=== PATIENT | female | born 1945 | race Caucasian/White ===

== ENCOUNTER 2017-04-05 08:29 | Inpatient (IN) | payer MEDICARE ==
[~2017-04-05] VITALS: Ht 170.2 cm; Wt 106.3 kg
--- NOTE | 2017-04-05 08:44 | NUR ---
PT TO ROOM 10 VIA WC.
[2017-04-05 09:24] LABS: HEMATOCRIT 35.2 % (37.0-47.0); HEMOGLOBIN 11.8 g/dl (12.0-16.0); IMMATURE GRANULOCYTES 1.6 % (0.0-1.0); MEAN CELL VOLUME 90.3 fL CALC (80.0-100.0); MEAN CORPUSCULAR HGB 30.3 pG CALC (26.0-32.0); MEAN CORPUSCULAR HGB CONC 33.5 g/L CALC (32.0-36.0); NEUT# 10.04 thou/uL (2.00-7.15); RED BLOOD COUNT 3.9 mill/uL (4.20-5.60); RED CELL DISTRI WIDTH 13.4 % (11.5-15.5)
--- NOTE | 2017-04-05 09:30 | NUR ---
RT AT BEDSIDE TO DRAW ABG.
[2017-04-05 09:42] LABS: ALKALINE PHOSPHATASE 187 u/l (38-126); ANION GAP 17 (6-22 (CALC)); BILIRUBIN, TOTAL 0.9 mg/dL (0.0-1.4); BUN 28 mg/dL (8-23); BUN/CREATININE RATIO 29 (12-20 (CALC)); CARBON DIOXIDE 29 mmol/l (22-30); CHLORIDE 95 mmol/l (95-108); CREATININE 0.9 mg/dL (0.5-1.0); GFR > 60 ML/MIN (>=60 (CALC)); GFR FOR AFR.AMER. > 60 ML/MIN (>=60 (CALC)); LIPASE 394 u/l (23-300); POTASSIUM 3.3 mmol/l (3.5-5.1); SGOT/AST 150 u/l (9-36); SGPT/ALT 64 u/l (11-66); SODIUM 137 mmol/l (137-146); TOTAL PROTEIN 7.7 g/dL (6.3-8.2)
--- NOTE | 2017-04-05 09:50 | NUR ---
MD AT BEDSIDE TO DISCUSS RESULTS.
[2017-04-05 09:54] LABS: MYOGLOBIN 96 ng/mL (0 - 62)
--- NOTE | 2017-04-05 10:25 | NUR ---
PATIENT RESTING ON STRETCHER WITH RESPIRATIONS EVEN AND UNLABORED, WITH O2 AT 2L VIA NASAL CANNULA. VISITOR AT BEDSIDE, WILL CONTINUE TO MONITOR.
--- NOTE | 2017-04-05 11:08 | NUR ---
ATTEMPT TO CALL REPORT, SPOKE TO FLACA. WILL TRY AGAIN.
--- NOTE | 2017-04-05 11:27 | NUR ---
REPORT GIVEN TO DORINA RUCKER
--- NOTE | 2017-04-05 11:40 | NUR ---
PATIENT TRANSPORTED TO ICU WITH BEATER LEAD IN PLACE VIA STRETCHER. BEDSIDE REPORT GIVEN TO DORINA RUCKER. CARE RELINQUISHED.
[2017-04-05 12:00] VITALS: BP 159/86
[2017-04-05 12:42] LABS: URINE BILIRUBIN - DIPSTICK NEGATIVE (NEGATIVE); URINE BLOOD DIPSTICK LARGE (NEGATIVE); URINE CLARITY HAZY; URINE COLOR DK. YELLOW; URINE GLUCOSE - DIPSTICK NEGATIVE (NEGATIVE); URINE KETONE TRACE mg/dL (NEGATIVE); URINE LEUK ESTERASE MODERATE (NEGATIVE); URINE NITRITE - DIPSTICK NEGATIVE (Negative); URINE PROTEIN - DIPSTICK 30 mg/dL (NEG-TRACE); URINE SPECIFIC GRAVITY 1.015
[2017-04-05 12:43] LABS: URINE RBC 25-50 RBC/hpf (0-5)
[2017-04-05 12:44] LABS: URINE BACTERIA MODERATE hpf; URINE EPITHELIAL CELLS MODERATE EPI/hpf (0-FEW)
--- NOTE | 2017-04-05 13:15 | NUR ---
DR. GARCIA IN TO SEE PT; PLAN OF CARE DISCUSSED;
--- NOTE | 2017-04-05 13:45 | NUR ---
PT TO CT VIA WC ACCOMPANIED BY STAFF
--- NOTE | 2017-04-05 14:10 | NUR ---
PT RETURN FROM CT VIA WC ACCOMPANIED BY VOLUNTEER; AMBULTORY TO BED WITH STAND BY ASSIST; PT DENIES PAIN OR DISCOMFORT; IVF STARTED AT THIS TIME; FAMILY IN TO VISIT PT; CALL JOSUE WITHIN REACH; WILL CONTINUE TO MONITOR.
--- NOTE | 2017-04-05 15:52 | NUR ---
PT WATCHING TV; NO COMPLAINTS VOICED; CALL JOSUE WITHIN REACH; WILL CONTINUE TO MONITOR.
[2017-04-05 16:00] VITALS: BP 156/93
[2017-04-05 20:08] VITALS: BP 138/78
--- NOTE | 2017-04-05 20:09 | NUR ---
BEDSIDE REPORT RECEIVED FROM DORINA RUCKER. PT RESTING IN BED WATCHING TV. DENIES PAIN CURRENTLY. RESPIRATIONS EVEN AND UNLABORED ON 1.5L OF OXYGEN VIA NC. PLAN OF CARE DISCUSSED. PT ENCOURAGED TO VERBALIZE CONCERNS. STATES UNDERSTANDING. SAFETY MEASURES IN PLACE. CALL LIGHT WITHIN REACH.
--- NOTE | 2017-04-05 22:08 | NUR ---
PT TRANSFERED FROM ICU TO [facility] ROOM 278 VIA STRETCHER WITH MED SURG STAFF. ORIENTED TO ROOM AND CALL LIGHT SYSTEM. HAS NO NEEDS OR REQUESTS AT THIS TIME. SAFETY MEASURES IN PLACE. CALL LIGHT SYSTEM REVIEWED AND IN REACH.
--- NOTE | 2017-04-06 | NUR ---
PT RESTING IN BED WITH EYES CLOSED WITH NO SIGNS OF DISTRESS NOTED. RESPIRATIONS EVEN AND UNLABORED. SHE IS SLIGHTLY DIAPHORETIC; AFEBRILE AND STATES THAT SHE IS COMFORTABLE. IV FLUIDS INFUSING WITHOUT DIFFICUTLY. PT USES CALL LIGHT PRN FOR ASSISTANCE TO THE BATHROOM. SAFETY MEASURES IN PLACE. CALL LIGHT WITHIN REACH.
--- NOTE | 2017-04-06 04:18 | NUR ---
PT ASLEEP AT THIS TIME WITH NO SIGNS OF DISTRESS NOTED. RESPIRATIONS EVEN AND UNLABORED. IV SITE OCCLUDED AND NEW IV SITE PLACED; APPEARS HEALTHY AND IV FLUIDS INFUSING WITHOUT DIFFICULTY. SAFETY MEASURES IN PLACE. CALL LIGHT WITHIN REACH.
[2017-04-06 05:47] LABS: HEMATOCRIT 32.7 % (37.0-47.0); HEMOGLOBIN 11.2 g/dl (12.0-16.0); MEAN CELL VOLUME 90.6 fL CALC (80.0-100.0); MEAN CORPUSCULAR HGB CONC 34.3 g/L CALC (32.0-36.0); RED BLOOD COUNT 3.61 mill/uL (4.20-5.60); RED CELL DISTRI WIDTH 13.3 % (11.5-15.5)
[2017-04-06 06:05] LABS: BUN 18 mg/dL (8-23); BUN/CREATININE RATIO 30 (12-20 (CALC)); CARBON DIOXIDE 22 mmol/l (22-30); CREATININE 0.6 mg/dL (0.5-1.0); GFR > 60 ML/MIN (>=60 (CALC)); GFR FOR AFR.AMER. > 60 ML/MIN (>=60 (CALC)); MAGNESIUM 2.4 mg/dL (1.6-2.3); POTASSIUM 3.4 mmol/l (3.5-5.1); SODIUM 142 mmol/l (137-146)
[2017-04-06 06:06] LABS: ANION GAP 13 (6-22 (CALC)); CHLORIDE 110 mmol/l (95-108)
[2017-04-06 06:36] VITALS: BP 123/78
--- NOTE | 2017-04-06 10:46 | NUR ---
PT WATCHING TV; NO COMPLAINTS VOICED AT THIS TIME; IVF INFUSING WITHOUT DIFFICULTY; WILL CONTINUE TO MONITOR.
[2017-04-06 11:00] VITALS: BP 129/68
--- NOTE | 2017-04-06 15:10 | NUR ---
PT WITH VISITORS AT BEDSIDE; NO COMPLAINTS OR CONCERNS VOICED; CALL JOSUE WITHIN REACH; WILL CONTINUE TO MONITOR.
--- NOTE | 2017-04-06 15:40 | NUR ---
S: RENU THOMPSON is a 71 F who presents with pneumonia. She has no known PMH. All medications in patient's chart were reviewed. O: VS: BP 129/68, P 96, RR 18,T 97.3 W 91.994 kg, HT 67in, Scr= 0.6,CrCl= 50.2 ml/min A: Blood culture and urine culture show no growth after 48 hours. Sputum culture is pending. P: Patient is on Zosyn 3.375 gm IV q6h and Azithromycin 500 mg IV q24h. Vancomycin ordered for pharmacy to dose. Change vancomycin dose to 750 mg IV Q12H IV. Vancomycin trough is drawn before the 4th dose on 04/07/17 at 09:30. Vancomycin goal trough is between 15-20 mcg/ml. Pharmacy will follow and or advise on antibiotics use as needed.
--- NOTE | 2017-04-06 15:45 | NUR ---
Patient feels better. Denied any side effects pertaining to medications.c
[2017-04-06 16:00] VITALS: BP 148/85
[2017-04-06 19:10] VITALS: BP 119/48
--- NOTE | 2017-04-06 20:40 | NUR ---
INTRODUCED SELF TO PT, DISCUSSED POC. ALERT AND ORIENTED X3, ASSESSMENT COMPLETED AT THIS TIME. CALL LIGHT IN REACH,CONTINUE TO MONITOR.
--- NOTE | 2017-04-06 22:20 | NUR ---
PT RESTING IN BED, NO SIGNS OF DISTRESS NOTED, RESP EVEN AND UNLABORED. STARTED VANCO INFUSION. PT VOICES NO NEEDS OR COMPLAINTS AT THIS TIME. CALL LIGHT IN REACH,CONTINUE TO MONITOR.
--- NOTE | 2017-04-07 | NUR ---
PT RESTING IN BED QUIETLY WITH EYES CLOSED AND APPEARS TO BE ASLEEP. NO APPARENT ACUTE DISTRESS NOTED.
--- NOTE | 2017-04-07 | NUR ---
PT RESTING IN BED, NEXT ANTIBIOTIC STARTED, PT VOICES NO NEEDS OR COMPLAINTS AT THIS TIME. CALL LIGHT IN REACH, CONTINUE TO MONITOR.
[2017-04-07 00:18] VITALS: BP 148/81
--- NOTE | 2017-04-07 04:00 | NUR ---
PT RESTING IN BED WITH EYES CLOSED, NO SIGNS OF DISTRESS NOTED, RESP EVEN AND UNLABORED. CALL LIGHT IN REACH,CONTINUE TO MONITOR.
[2017-04-07 04:10] VITALS: BP 141/85
[2017-04-07 05:37] LABS: ANION GAP 15 (6-22 (CALC)); BUN 20 mg/dL (8-23); BUN/CREATININE RATIO 31 (12-20 (CALC)); CARBON DIOXIDE 20 mmol/l (22-30); CHLORIDE 112 mmol/l (95-108); CREATININE 0.7 mg/dL (0.5-1.0); GFR > 60 ML/MIN (>=60 (CALC)); GFR FOR AFR.AMER. > 60 ML/MIN (>=60 (CALC)); HEMATOCRIT 31.8 % (37.0-47.0); HEMOGLOBIN 10.7 g/dl (12.0-16.0); IMMATURE GRANULOCYTES 2.9 % (0.0-1.0); MAGNESIUM 2.4 mg/dL (1.6-2.3); MEAN CELL VOLUME 91.4 fL CALC (80.0-100.0); MEAN CORPUSCULAR HGB 30.7 pG CALC (26.0-32.0); MEAN CORPUSCULAR HGB CONC 33.6 g/L CALC (32.0-36.0); NEUT# 13.73 thou/uL (2.00-7.15); POTASSIUM 3.4 mmol/l (3.5-5.1); RED BLOOD COUNT 3.48 mill/uL (4.20-5.60); RED CELL DISTRI WIDTH 13.5 % (11.5-15.5); SODIUM 144 mmol/l (137-146)
[2017-04-07 05:38] LABS: CHOLESTEROL HDL RATIO 10.3 (<4.4 (CALC))
--- NOTE | 2017-04-07 05:45 | NUR ---
CPT DONE AND WELL NAREN. BY PATIENT. N0 INCREASED OF HEART RATE OR RESPIRATORY RATE.
--- NOTE | 2017-04-07 07:38 | NUR ---
REPORT RECEIVED FROM NIGHT NURSE. PT.APPEARS TO BE SLEEPING AT THIS TIME. CALL LIGHT IS W/IN REACH, NO S/S OF DISTRESS NOTED AT THIS TIME.
[2017-04-07 07:45] VITALS: BP 148/82
--- NOTE | 2017-04-07 09:00 | NUR ---
PT ASSESSMENT COMPLETED. PT IS A&O X3. PT IS REPORTING NO PAIN AT THIS TIME. VITAL SIGNS WERE WITHIN RANGE. HEART SOUNDS REGULAR AND STRONG. LUNG SOUNDS WERE CLEAR IN THE LEFT LOBES, CRACKLES NOTED IN THE RIGHT UPPER LOBE WITH DIMINISHED SOUNDS IN THE RIGHT LOWER LOBE. PT IS NOT IN ANY DISTRESS, ONLY EXPERIENCING SOME EXERTIONAL SOB. SHE IS CURRENTLY ON O2 NC @2L WITH O2 SATS OF 95%. TOLERATING NEBS WITH NO DIFFICULTY. NON-PRODUCTIVE COUGH WITH NO SPUTUM CURRENTLY. RADIAL AND PEDAL PULSES PRESENT AND STRONG. NEURO REFLEXES INTACT. SKIN IS WARM/DRY WITH NORMAL TURGOR AND GOOD CAPILLARY REFILL IN ALL EXTREMITIES. IV SITE HAS NO EDEMA OR ERYTHEMA. ABDOMEN SOFT, NON-TENDER WITH ACTIVE BOWEL SOUNDS IN ALL QUADRANTS. PT STATES SHE HAS HAD BOUTS OF DIARRHEA THE LAST FEW DAYS, BUT TODAY STOOL SEEMS TO BE FIRMER THAN BEFORE. STAFF NURSE AWARE. CALL LIGHT WITHIN REACH AND WILL CONTINUE TO MONITOR.
--- NOTE | 2017-04-07 09:15 | NUR ---
PT.MEDICATED AT THIS TIME W/AM MEDICATIONS. NO S/S OF DISTRESS AT THIS TIME. PT.DENIES ANY DISTRESS, REPORTS S/O UPON EXERTION. LUNG SOUNDS ARE CLEAR UPPER AND CRACKLES AUDIBLE RIGHT LOWER LOBE. CALL LIGHT IS W/IN REACH, STUDENT IS WORKING W/PT. PT.WAS INSTRUCTED TO CALL IF ANY NEEDS ARISE.
--- NOTE | 2017-04-07 11:30 | NUR ---
Vancomycin single level analysis: Current dose being given: 750 mg Current dosing interval: 12 hrs Current infusion time (hrs): 2 Single level Trough Data: Trough level obtained: 7 mcg/ml TROUGH TIME 0934 Desired trough: 15 mcg/ml Diagnosis:PNEUMONIA Assessment: Renal function is stable Recommendations: Give Vancomycin 1000 mg q 8 hrs. Infuse over 2 hrs NEXT TROUGH WILL BE 04/08/17 AT 1800 DOSES WILL BE GIVEN AT 0200,1000,1830 TO AVOID OVERLAPPING WITH OTHER IV ABX Thank you for the consult, will continue to follow. Signature: AUGUST KOLB
[2017-04-07 12:30] VITALS: BP 156/85
--- NOTE | 2017-04-07 14:13 | NUR ---
PT.MEDICATED W/IV ANTIBIOTIC THERAPY. PT.IS UPRIGHT IN BED AT THIS TIME WATCHING TV. SHE JUST HAD VISITORS LEAVE. PT.DENIES ANY PAIN/N/V AT THIS TIME. CALL LIGHT IS W/IN REACH.
--- NOTE | 2017-04-07 14:21 | NUR ---
PT.MEDICATED W/SOLU MEDROL AND ANTIBIOTIC THERAPY. PT.LEFT UPRIGHT IN BED W/FRIEND VISITING AT BEDSIDE.
[2017-04-07 16:00] VITALS: BP 170/90
--- NOTE | 2017-04-07 16:36 | NUR ---
Pt feels better and stated she can breathe better than previous days. . No side effects pertaining to medications. c
[2017-04-07 18:58] VITALS: BP 170/88
--- NOTE | 2017-04-07 19:00 | NUR ---
RECEIVED CHANGE OF SHIFT REPORT FROM DORINA PATEL. PATIENT ALERT AND ORIENTED AND LYING IN BED. NO APPARENT ACUTE DISTRESS NOTED. WILL CONTINUE TO MONITOR.
--- NOTE | 2017-04-07 19:29 | NUR ---
PT.MEDICATED FOR B/P AND HR AND W/IV ANTIBIOTICS AT THIS TIME. PT IS IN HIGH FOWLERS POSITION IN BED WATCHING TV. DENIES ANY PAIN AT THIS TIME. CALL LIGHT IS W/IN REACH AND PT.INSTRUCTED TO CALL FOR ANY ASSISTANCE NEEDED
[2017-04-08] VITALS (8 sets, daily range): BP systolic 134–176; BP diastolic 54–90
--- NOTE | 2017-04-08 | NUR ---
PATIENT RESTING WITH EYES CLOSED AND APPEARS TO BE ASLEEP. RESP EVEN AND NONLABORED.
--- NOTE | 2017-04-08 04:00 | NUR ---
NO APPARENT ACUTE CHANGES NOTED IN PT'S CONDITION.
[2017-04-08 05:21] LABS: HEMATOCRIT 31.3 % (37.0-47.0); HEMOGLOBIN 10.5 g/dl (12.0-16.0); MEAN CELL VOLUME 92.1 fL CALC (80.0-100.0); MEAN CORPUSCULAR HGB 30.9 pG CALC (26.0-32.0); MEAN CORPUSCULAR HGB CONC 33.5 g/L CALC (32.0-36.0); NEUT# 13.73 thou/uL (2.00-7.15); RED BLOOD COUNT 3.4 mill/uL (4.20-5.60); RED CELL DISTRI WIDTH 13.8 % (11.5-15.5)
[2017-04-08 05:36] LABS: ANION GAP 18 (6-22 (CALC)); BUN 19 mg/dL (8-23); BUN/CREATININE RATIO 29 (12-20 (CALC)); CARBON DIOXIDE 20 mmol/l (22-30); CHLORIDE 111 mmol/l (95-108); CREATININE 0.7 mg/dL (0.5-1.0); GFR > 60 ML/MIN (>=60 (CALC)); GFR FOR AFR.AMER. > 60 ML/MIN (>=60 (CALC)); MAGNESIUM 2.2 mg/dL (1.6-2.3); POTASSIUM 3.3 mmol/l (3.5-5.1); SODIUM 145 mmol/l (137-146)
[2017-04-08 05:56] LABS: IMMATURE GRANULOCYTES 7.9 % (0.0-1.0)
--- NOTE | 2017-04-08 06:00 | NUR ---
CPT DONE TO POSTERIOR RIGHT LUNG YOUNG. NON-PRODUCTIVE COUGH. TOLERATED WELL.
--- NOTE | 2017-04-08 07:50 | NUR ---
PT.IS SITTING ON SIDE OF THE BED. REPORT HAS BEEN RECEIVED FROM SOPHIA NIGHT NURSE. PT.REPORTS HAVE ANXIETY AND "FELT LIKE I COULDN'T BREATH." SHE REPORTED THAT RESPIRATORY CAME UP WITH A BREATHING TREATMENT AND THAT "HELPED A LOT." PT.ALSO REPORTS THAT CPT'S WERE ADMINISTERED TWICE OVER NIGHT AND THAT "HELPED ALSO." LUNG SOUNDS ARE CLEAR UPPER WITH MILD CRACKLE SOUNDS TO RIGHT LOWER LOBE. OTHERWISE ASSESSMENT WAS NEG. PT.DENIES ANY PAIN/N/V OR SOB AT THIS TIME. CALL LIGHT IS W/IN REACH.
--- NOTE | 2017-04-08 09:29 | NUR ---
PT.IS UPRIGHT IN RECLINER. ASSISTED AMBULATING TO RESTROOM AND BACK TO RECLINER. RESPIRATORY IN TO SEE PT.AT THIS TIME FOR BREATHING TREATMENT. PT.O2 SAT 93% RA AFTER AMBULATING TO RESTROOM, 97% ON O2. PT.MEDICATED W/AM MEDICATIONS ORDERED, K-DUR AND ANTIBIOTIC THERAPY. PT.DENIES ANY OTHER NEEDS, CALL LIGHT W/IN REACH
--- NOTE | 2017-04-08 10:50 | NUR ---
PT.MEDICATED W/IV ANTIBIOTIC THERAPY AT THIS TIME. SHE IS LEFT UPRIGHT IN RECLINER W/BEDSIDE TRAY IN FRONT OF HER. POC DISCUSSED AND PT.INSTRUCTED TO CALL IF ANY NEEDS ARISE, CALL LIGHT IS AT SIDE
--- NOTE | 2017-04-08 11:40 | NUR ---
PT.UPRIGHT IN RECLINER W/VISITORS AT SIDE. DENIES ANY NEEDS
--- NOTE | 2017-04-08 13:09 | NUR ---
PT.IV REMOVED/HEALTHY AND INTACT AND TISSUE REWINDER REMOVED. PT.DISCHARGED OFF UNIT FLOOR IN GOOD CONDITION VIA WHEELCHAIR ACCOMPANIED BY MACKENZIE.
--- NOTE | 2017-04-08 13:35 | NUR ---
PT.WAS ASSISTED TO RESTROOM AND BACK. PT.BECAME SOB UPON AMBULATING, O2 SAT 94%, BUT HR WAS ELEVATED TO 135. MAGUE W/RESPIRATORY IS IN W/PT STARTING TO ADMINISTER TREATMENT. ED CALLED TO REPORT ELEVATED HR. I WILL FOLLOW-UP TO REASSESS AFTER PT.HAS BEEN SITTING W/O2 ON AND BREATHING TREATMENT COMPLETE.
--- NOTE | 2017-04-08 13:57 | NUR ---
PT.MEDICATED ORDERS PROVIDE. PT.LEFT UPRIGHT IN RECLINER, DENIES ANY OTHER NEEDS AT THIS TIME
--- NOTE | 2017-04-08 14:07 | NUR ---
ED REPORTS THAT PT IS READING ST105 ON BAND STRAIGHTENER NOW THAT SHE IS SITTING IN RECLINER AND NO LONGER AMBULATING OR RECEIVING BREATHING TREATMENT FROM RESPIRATORY.
--- NOTE | 2017-04-08 15:25 | NUR ---
OT IS IN WORKING WITH PT.AT THIS TIME.
--- NOTE | 2017-04-08 15:32 | NUR ---
PT.MEDICATED W/LOPRESSOR FOR HR OF 110.
[2017-04-08 16:47] LABS: MAGNESIUM 1.9 mg/dL (1.6-2.3); POTASSIUM 3.1 mmol/l (3.5-5.1)
--- NOTE | 2017-04-08 18:12 | NUR ---
PT.UPRIGHT IN RECLINER W/FEET ELEVATED EATING SUPPER. PT.MEDICATED W/IV ANTIBIOTIC THERAPY. DENIES ANY OTHER NEEDS, CALL LIGHT W/IN REACH
--- NOTE | 2017-04-08 19:15 | NUR ---
REPORT RECEIVED FROM DORINA PATEL;PT OOB WATCHING TV IN RECLINER;INTRODUCED SELF TO PT AND POC DISCUSSED;PT DENIES ANY NEEDS AT THIS TIME;FALL PRECAUTIONS IN PLACE;CALL LIGHT IN REACH;WILL CONTINUE TO MONITOR
--- NOTE | 2017-04-08 20:15 | NUR ---
PT RESTING IN RECLINER WATCHING TV;A&O X3;ASSESSMENT COMPLETED;RESPIRATIONS EVEN AND UNLABORED ON RA,CRACKLES TO RLL NOTED;#20G TO RIGHT WRIST INFUSING NS @ 10ML/HR,SITE APPEARS HEALTHY;ABDOMEN SOFT UPON PALPATION;PERRLA;STRONG PEDAL PULSES WITH TRACE EDEMA NOTED TO BILATERAL ANKLES;PT ENCOURAGED TO ELEVATE FEET;SKIN INTACT;TELE MONITOR IN PLACE;FRESH WATER PRVIDED PER REQUEST;SAFETY PRECAUTIONS REINFORCED AND PT ENCOURAGED TO CALL FOR ASSISTANCE IF NEEDED;CALL LIGHT IN REACH;WILL CONTINUE TO MONITOR
--- NOTE | 2017-04-08 23:35 | NUR ---
PT OOB RESTING IN RECLINER;RESPIRATIONS EVEN AND UNLABORED ON RA,O2 SATS 94%; VS OBTAINED WITH CURRENT BP 134/72 HR 84;TELE MONITOR IN PLACE;PT VOICES NO NEEDS AT THIS TIME;CALL LIGHT IN REACH;WILL CONTINUE TO MONITOR
--- NOTE | 2017-04-09 04:10 | NUR ---
PT AWAKE OOB IN RECLINER;VS OBTAINED,BP 137/85 HR 87;RESPIRATIONS EVEN AND UNLABORED ON RA,O2 SATS @ 95%;IV FLUIDS INFUSING WELL TO RIGHT WRIST;PT HAD A DARK BROWN BM BUT WAS COLLECTED WITH URINE AND TOILET PAPER;PT RE-EDUCATED ON THE NEED FOR A STOOL SPECIMEN AND TO VOID INTO THE HAT,PT VERBALIZES UNDERSTANDING;TELE MONTIOR IN PLACE;PT VOICES NO OTHER NEEDS AT THIS TIME;CALL LIGHT IN REACH;WILL CONTINUE TO MONITOR
[2017-04-09 04:12] VITALS: BP 137/85
[2017-04-09 05:19] LABS: HEMATOCRIT 30.6 % (37.0-47.0); HEMOGLOBIN 10.4 g/dl (12.0-16.0); MEAN CELL VOLUME 91.3 fL CALC (80.0-100.0); RED BLOOD COUNT 3.35 mill/uL (4.20-5.60); RED CELL DISTRI WIDTH 13.9 % (11.5-15.5)
[2017-04-09 05:30] LABS: ANION GAP 17 (6-22 (CALC)); BUN 18 mg/dL (8-23); BUN/CREATININE RATIO 23 (12-20 (CALC)); CARBON DIOXIDE 22 mmol/l (22-30); CHLORIDE 108 mmol/l (95-108); CREATININE 0.8 mg/dL (0.5-1.0); GFR > 60 ML/MIN (>=60 (CALC)); GFR FOR AFR.AMER. > 60 ML/MIN (>=60 (CALC)); MAGNESIUM 1.9 mg/dL (1.6-2.3); POTASSIUM 3.8 mmol/l (3.5-5.1); SODIUM 144 mmol/l (137-146)
--- NOTE | 2017-04-09 07:04 | NUR ---
REPORT RECEIVED FROM GERARDO POLLOCK. PT SITTING IN CHAIR AT BEDSIDE. DENIES PAIN. REPORTING OF CONCERNS ENCOURAGED. PLAN OF CARE DISCUSSED. FALL PRECAUTIONS REINFORCED. CALL LIGHT REVIEWED AND IN REACH. PT STATES UNDERSTANDING.
[2017-04-09 07:40] VITALS: BP 154/72
--- NOTE | 2017-04-09 10:06 | NUR ---
S: RENU THOMPSON is a 71 F who presents with pneumonia. She has a history of need for supplementary oxygen and generalized malaise. All medications in patient's chart were reviewed. O: VS: BP 154/72, P 106, RR 16,T 97.3 W 106.311, HT 67 in, Scr= 0.8,CrCl= 64.8 ml/min A: Blood cultures show no growth. Sputum culture is pending. P: Patient is on Zosyn 3.375 gm IV Q6H. Vancomycin ordered for pharmacy to dose. Continue Vancomycin 1 gm IV Q8H. Vancomycin trough is drawn before the 4th dose on 04/11/17 at 09:30. Vancomycin goal trough is between 15-20 mcg/ml. Pharmacy will follow and or advise on antibiotics use as needed.
--- NOTE | 2017-04-09 11:04 | NUR ---
PT AMBULATED IN HALLWAYS WITH PHYSICAL THERAPY. NOW IN CHAIR AT BEDSIDE, VISITOR AT BEDSIDE. NO COMPLAINTS AT THIS TIME.
[2017-04-09 11:05] VITALS: BP 156/82
--- NOTE | 2017-04-09 11:59 | NUR ---
AMBULATED WITH SBA WHILE HOLDING ONTO IV POLE ~100 FT. X 2. PT WAS ABLE TO EXECUTE ALL ACTIVITIES INDEPENDENTLY AND SAFELY. SPO2 ON ROOM AIR WAS BETWEEN 92-96% ALTHROUGHOUT THE ACTIVITY. PT STATES SHE FEELS BETTER AND DID NOT FEEL SHORT OF BREATH AT THE END OF ACTIVITY. NO ADVERSE RXNS NOTED OR REPORTED.
--- NOTE | 2017-04-09 12:19 | NUR ---
PT SITTING IN CHAIR AT BEDSIDE. DENIES COMPLAINTS. REPORTS ANTICIPATION OF DISCHARGE. DISCHARGE PROCESS REVIEWED. PT STATES UNDERSTANDING.
[2017-04-09] MEDS ORDERED: VANTIN200 M1 PO (13:35)
[2017-04-09] MEDS ORDERED: ALPRAZOLAM0.25 MG PO (13:35)
[2017-04-09] MEDS ORDERED: ZITHROMAX250 MG PO (13:35)
[2017-04-09] MEDS ORDERED: IPRATROPIU0.5 MG/3 M NEB (13:35)
[2017-04-09] MEDS ORDERED: LOPRESSOR25 MG PO (13:35)
[2017-04-09] MEDS ORDERED: LOSARTAN POT50 MG PO (13:35)
[2017-04-09] MEDS ORDERED: PREDNISONE10 MG PO (13:35)
--- NOTE | 2017-04-09 14:35 | NUR ---
Patient is feeling better and getting a discharge. Patient was educated on Cefpodoxime, Azithromycin and Prednisone. c
== END 2017-04-09 15:53 | disposition home or self-care (01) | DRG 193 ==
LOC: ED 08:29 → ED-I 09:33 → ED 09:50 → ICU 09:51 → MS2 09:51
PROVIDERS: Emergency Medicine; Nurse Practitioner Family; ADMIT Internal Medicine; ATTEND Internal Medicine
DX: J18.9 Pneumonia, unspecified organism (principal); J96.01 Acute respiratory failure with hypoxia; J96.02 Acute respiratory failure with hypercapnia; E87.3 Alkalosis; F17.210 Nicotine dependence, cigarettes, uncomplicated; E87.6 Hypokalemia; N20.0 Calculus of kidney; F41.1 Generalized anxiety disorder; I10 Essential (primary) hypertension; R00.0 Tachycardia, unspecified
CPT/HCPCS: J1650; J3370; Q9967

== ENCOUNTER 2017-07-27 15:00 | Observation (INO) | payer MEDICARE ==
[~2017-07-27] VITALS: Ht 170.2 cm; Wt 104.9 kg
[~2017-07-27 15:00] MED LIST: ALPRAZOLAM0.25 MG PO; IPRATROPIU0.5 MG/3 M NEB; LOPRESSOR25 MG PO; LOSARTAN POT50 MG PO; PREDNISONE10 MG PO; VANTIN200 M1 PO; ZITHROMAX250 MG PO
[2017-07-27 16:02] VITALS: BP 180/84
[2017-07-27] MEDS ORDERED: FISH OIL1200 M2 PO (16:47)
[2017-07-27] MEDS ORDERED: PRESERVISION PO (16:48)
[2017-07-27] MEDS ORDERED: SYSTANE OU (16:49)
[2017-07-27] MEDS ORDERED: CALCIUM500 M4 PO (16:49)
[2017-07-27 18:10] LABS: IMMATURE GRANULOCYTES 0.6 % (0.0-1.0); MEAN CORPUSCULAR HGB 30.2 pG CALC (26.0-32.0); MEAN CORPUSCULAR HGB CONC 32.1 g/L CALC (32.0-36.0); NEUT# 7.13 thou/uL (2.00-7.15); RED BLOOD COUNT 4.47 mill/uL (4.20-5.60); RED CELL DISTRI WIDTH 13.8 % (11.5-15.5)
[2017-07-27 18:11] LABS: HEMOGLOBIN 13.5 g/dl (12.0-16.0)
[2017-07-27 18:49] LABS: ALBUMIN 4.2 g/dL (3.2-5.0); BILIRUBIN, TOTAL 0.3 mg/dL (0.0-1.4); BUN 23 mg/dL (8-23); BUN/CREATININE RATIO 28 (12-20 (CALC)); CARBON DIOXIDE 25 mmol/l (22-30); CHLORIDE 105 mmol/l (95-108); CREATININE 0.8 mg/dL (0.5-1.0); GFR > 60 ML/MIN (>=60 (CALC)); GFR FOR AFR.AMER. > 60 ML/MIN (>=60 (CALC)); SGPT/ALT 37 u/l (11-66); SODIUM 143 mmol/l (137-146); TOTAL PROTEIN 7.7 g/dL (6.3-8.2)
[2017-07-27 18:50] LABS: ALKALINE PHOSPHATASE 84 u/l (38-126); ANION GAP 17 (6-22 (CALC)); POTASSIUM 4.4 mmol/l (3.5-5.1); SGOT/AST 26 u/l (9-36)
[2017-07-27 19:30] VITALS: BP 146/84
[2017-07-27 20:02] LABS: URINE BILIRUBIN - DIPSTICK NEGATIVE (NEGATIVE); URINE BLOOD DIPSTICK TRACE-INTACT (NEGATIVE); URINE COLOR YELLOW; URINE GLUCOSE - DIPSTICK NEGATIVE (NEGATIVE); URINE KETONE NEGATIVE (NEGATIVE); URINE NITRITE - DIPSTICK NEGATIVE (Negative); URINE PROTEIN - DIPSTICK NEGATIVE (NEG-TRACE); URINE UROBILINOGEN - DIPSTICK 0.2 E.U./dL (0.2)
[2017-07-27 20:10] LABS: URINE CLARITY TURBID; URINE LEUK ESTERASE MODERATE (NEGATIVE)
[2017-07-27 20:46] LABS: URINE WBC TNTC WBC/hpf (0-5)
[2017-07-27 20:47] LABS: URINE BACTERIA FEW hpf; URINE SQUAMOUS EPITHELIAL CELL MODERATE EPI/hpf (0-FEW)
[2017-07-28] VITALS: BP 151/88
[2017-07-28 04:05] VITALS: BP 136/78
[2017-07-28 06:28] LABS: ALBUMIN 3.8 g/dL (3.2-5.0); ALKALINE PHOSPHATASE 75 u/l (38-126); ANION GAP 16 (6-22 (CALC)); BILIRUBIN, TOTAL 0.5 mg/dL (0.0-1.4); BUN 19 mg/dL (8-23); BUN/CREATININE RATIO 22 (12-20 (CALC)); CARBON DIOXIDE 27 mmol/l (22-30); CHLORIDE 104 mmol/l (95-108); CREATININE 0.8 mg/dL (0.5-1.0); GFR > 60 ML/MIN (>=60 (CALC)); GFR FOR AFR.AMER. > 60 ML/MIN (>=60 (CALC)); POTASSIUM 4.4 mmol/l (3.5-5.1); SGOT/AST 23 u/l (9-36); SGPT/ALT 37 u/l (11-66); SODIUM 142 mmol/l (137-146)
[2017-07-28 09:14] VITALS: BP 146/62
[2017-07-28] MEDS ORDERED: ATORVASTATIN CA10 MG PO (12:19)
[2017-07-28] MEDS ORDERED: ADLT ASA LOW81 MG PO (12:19)
[2017-07-28] MEDS ORDERED: METOPROL TAR25 M1 PO (12:19)
[2017-07-28 12:24] VITALS: BP 139/60
== END 2017-07-28 12:50 | disposition home or self-care (01) ==
LOC: MS2 15:00
PROVIDERS: ADMIT Internal Medicine; ATTEND Internal Medicine
DX: I16.0 Hypertensive urgency (principal); I10 Essential (primary) hypertension; R94.31 Abnormal electrocardiogram [ECG] [EKG]; R00.0 Tachycardia, unspecified; Z87.891 Personal history of nicotine dependence; R06.00 Dyspnea, unspecified

== ENCOUNTER → 2018-04-14 | Outpatient (REF) | payer MEDICARE ==
[~2018-04-14] MED LIST changes: +ADLT ASA LOW81 MG PO; +ATORVASTATIN CA10 MG PO; +CALCIUM500 M4 PO; +FISH OIL1200 M2 PO; +METOPROL TAR25 M1 PO; +PRESERVISION PO; +SYSTANE OU
[2018-04-14 08:30] LABS: ALBUMIN 4.2 g/dL (3.2-5.0); ALKALINE PHOSPHATASE 85 u/l (38-126); ANION GAP 13 (6-22 (CALC)); BILIRUBIN, TOTAL 0.5 mg/dL (0.0-1.4); BUN 18 mg/dL (8-23); BUN/CREATININE RATIO 19 (12-20 (CALC)); CALCULATED LDLCHOLESTEROL 102 mg/dL (62-129 (CALC)); CARBON DIOXIDE 28 mmol/l (22-30); CHLORIDE 106 mmol/l (95-108); CHOLESTEROL HDL RATIO 3.7 (<4.4 (CALC)); GFR 55 ML/MIN (>=60 (CALC)); GFR FOR AFR.AMER. > 60 ML/MIN (>=60 (CALC)); HDL CHOLESTEROL 50 mg/dL (>=40); POTASSIUM 4.3 mmol/l (3.5-5.1); SGOT/AST 23 u/l (9-36); SODIUM 142 mmol/l (137-146); TOTAL CHOLESTEROL 186 mg/dl (0-199); TOTAL PROTEIN 7.3 g/dL (6.3-8.2); TOTAL TRIGLYCERIDES 168 mg/dl (30-149); VLDL CHOLESTROL 34 mg/dl (0-48 (CALC))
[2018-04-14 08:40] LABS: HEMATOCRIT 38.8 % (37.0-47.0); HEMOGLOBIN 12.3 g/dl (12.0-16.0); IMMATURE GRANULOCYTES 0.4 % (0.0-5.0); MEAN CELL VOLUME 90.4 fL CALC (80.0-100.0); MEAN CORPUSCULAR HGB 28.7 pG CALC (26.0-32.0); MEAN CORPUSCULAR HGB CONC 31.7 g/L CALC (32.0-36.0); NEUT# 4.95 thou/uL (2.00-7.15); RED BLOOD COUNT 4.29 mill/uL (4.20-5.60); RED CELL DISTRI WIDTH 15.7 % (11.5-15.5)
[2018-04-14 08:58] LABS: TSH, 3RD GENERATION 1.97 uIU/mL (0.47 - 4.68)
== END | disposition home or self-care (01) ==
LOC: LAB 07:37
PROVIDERS: ATTEND Internal Medicine
DX: D55.9 Anemia due to enzyme disorder, unspecified (principal); E03.9 Hypothyroidism, unspecified; E11.65 Type 2 diabetes mellitus with hyperglycemia; E55.9 Vitamin D deficiency, unspecified; I10 Essential (primary) hypertension

== ENCOUNTER 2020-11-05 09:26 | Outpatient (REF) | payer MEDICARE ==
[2020-11-05 11:17] VITALS: BP 121/70
== END 2020-11-05 13:48 | disposition home or self-care (01) ==
LOC: INF 09:26
PROVIDERS: ATTEND Internal Medicine
DX: D50.9 Iron deficiency anemia, unspecified (principal)

== ENCOUNTER 2021-12-24 12:28 | Emergency (ER) | payer MEDICARE ==
[~2021-12-24] VITALS: Ht 170.2 cm; Wt 100.0 kg
[2021-12-24] MEDS ORDERED: LISINOPRIL10 MG PO (12:44)
[2021-12-24] MEDS ORDERED: METOPROL TAR25 MG PO (12:45)
[2021-12-24 13:13] LABS: URINE BILIRUBIN - DIPSTICK NEGATIVE (NEGATIVE); URINE BLOOD DIPSTICK MODERATE (NEGATIVE); URINE COLOR YELLOW; URINE GLUCOSE - DIPSTICK NEGATIVE (NEGATIVE); URINE KETONE NEGATIVE (NEGATIVE); URINE PROTEIN - DIPSTICK NEGATIVE (NEG-TRACE); URINE SPECIFIC GRAVITY 1.015; URINE UROBILINOGEN - DIPSTICK 0.2 E.U./dL (0.2)
[2021-12-24 13:17] LABS: URINE LEUK ESTERASE LARGE (NEGATIVE); URINE NITRITE - DIPSTICK NEGATIVE (Negative)
[2021-12-24 13:18] LABS: URINE BACTERIA MODERATE hpf; URINE EPITHELIAL CELLS MODERATE EPI/hpf (0-FEW); URINE WBC 20-50 WBC/hpf (0-5)
[2021-12-24] MEDS ORDERED: BACTRIM DS1 TAB PO (14:07)
[2021-12-24] MEDS ORDERED: NAPROXEN500 MG PO (14:07)
[2021-12-24] MEDS ORDERED: TRAMADOL HYDROC50 M1 PO (14:10)
[2021-12-24 14:31] VITALS: BP 191/81
== END 2021-12-24 14:31 | disposition home or self-care (01) ==
LOC: ED 12:28
PROVIDERS: Emergency Medicine
DX: S32.040A Wedge compression fracture of fourth lumbar vertebra, initial encounter for closed fracture (principal); N20.0 Calculus of kidney; N39.0 Urinary tract infection, site not specified; I10 Essential (primary) hypertension; E78.5 Hyperlipidemia, unspecified; X58.XXXA Exposure to other specified factors, initial encounter; Z87.442 Personal history of urinary calculi

== ENCOUNTER 2022-02-03 12:27 | Emergency (ER) | payer MEDICARE ==
[2022-02-03] VITALS (7 sets, daily range): BP systolic 140–176; BP diastolic 62–77
[~2022-02-03] VITALS: Ht 170.2 cm; Wt 100.0 kg
[~2022-02-03 12:27] MED LIST changes: +BACTRIM DS1 TAB PO; +LISINOPRIL10 MG PO; +METOPROL TAR25 MG PO; +NAPROXEN500 MG PO; +TRAMADOL HYDROC50 M1 PO
[2022-02-03] MEDS ORDERED: PAROXETINE20 MG PO (12:35)
[2022-02-03] MEDS ORDERED: TRAMADOL HCL50 MG PO (12:36)
[2022-02-03] MEDS ORDERED: NEURONTIN100 MG PO (14:53)
[2022-02-03] MEDS ORDERED: PREDNISONE10 MG PO (14:53)
[2022-02-03] MEDS ORDERED: METHOCARBAMOL500 MG PO (14:53)
== END 2022-02-03 15:01 | disposition home or self-care (01) ==
LOC: ED 12:27
DX: M51.17 Intervertebral disc disorders with radiculopathy, lumbosacral region (principal); I10 Essential (primary) hypertension; E78.5 Hyperlipidemia, unspecified; Z98.890 Other specified postprocedural states

== ENCOUNTER 2022-04-06 06:54 | Day surgery (SDC) | payer MEDICARE ==
[~2022-04-06] VITALS: Ht 170.2 cm; Wt 95.3 kg
[~2022-04-06 06:54] MED LIST changes: +GABAPENTIN100 MG PO; +METHOCARBAMOL500 MG PO; +NEURONTIN100 MG PO; +PAROXETINE20 MG PO; +PRESERVISION AREDS 2 PO; +SLOW FE142 MG PO; +TRAMADOL HCL50 MG PO; +VITAMIN B-12500 MCG PO; +VITAMIN C1000 MG PO
[2022-04-06] MEDS ORDERED: OMEPRAZOLE DR20 MG PO (07:13)
[2022-04-06 08:09] VITALS: BP 133/62
== END 2022-04-06 08:30 | disposition home or self-care (01) ==
LOC: ORM 06:54
PROVIDERS: ATTEND Internal Medicine Gastroenterology
PROC: 0DB78ZX Excision of Stomach, Pylorus, Via Natural or Artificial Opening Endoscopic, Diagnostic (ICD-10-PCS; principal; 2022-04-06)
DX: R13.10 Dysphagia, unspecified (principal); K29.50 Unspecified chronic gastritis without bleeding; K44.9 Diaphragmatic hernia without obstruction or gangrene